=== PATIENT | female | born 2000 | race African-American/Black ===

== ENCOUNTER 2024-01-28 09:38 | Outpatient (CLI) | payer BC | END 2024-01-28 09:39 | disposition home or self-care (01) | LOC: RAD 09:38 | PROVIDERS: ATTEND Internal Medicine Rheumatology | DX: J18.9 Pneumonia, unspecified organism (principal); M32.9 Systemic lupus erythematosus, unspecified; R05.9 Cough, unspecified | CPT/HCPCS: 71046 ==

== ENCOUNTER 2024-02-18 08:51 | Outpatient (CLI) | payer BC | END 2024-02-18 08:52 | disposition home or self-care (01) | LOC: CT 08:51 | PROVIDERS: ATTEND Nurse Practitioner Adult Health | DX: D50.9 Iron deficiency anemia, unspecified (principal); I31.39 Other pericardial effusion (noninflammatory); R59.0 Localized enlarged lymph nodes | CPT/HCPCS: 74178 ==